=== PATIENT | female | born 1980 | race Caucasian/White ===

== ENCOUNTER 2016-08-08 14:04 | Emergency (ER) | payer SELFPAY ==
[~2016-08-08] VITALS: Ht 154.9 cm; Wt 65.0 kg
[2016-08-08 14:06] VITALS: BP 138/70; PULSE 67; RESP 16; TEMP 98.7; O2SAT 100
[2016-08-08 14:10] VITALS: RESP 16; O2SAT 100
--- NOTE | 2016-08-08 14:10 | PD ---
Physical Exam Time Seen by Provider: 14:08 Narrative 35 y/o female here with numbness R side of face, arm, R sided blurred vision, headache. Symptom onset one hour ago. Slightly decreased etcher machine strength R side. Vital signs reviewed. Seen at triage desk. She is being bedded immediately. Data Data Last Documented VS Vital Signs Date Time Temp Pulse Resp B/P Pulse Ox O2 Delivery O2 Flow Rate FiO2 08/08/16 14:06 98.7 67 16 138/70 100 MDM Medical Record Reviewed: Yes Supervised Visit with CARLY: Jacobo Hampton Aug 08, 2016 14:10
--- NOTE | 2016-08-08 14:34 | PD ---
HPI Chief Complaint: Neuro Symptoms/ Deficits Time Seen by Provider: 14:21 Travel History International Travel<30 days: No Contact w/Intl Traveler<30days: No Traveled to known affect area: No History of Present Illness HPI 35-year-old female presents with frontal headache with blurry vision and numbness to her right face and hand. She states this started at 1 PM this afternoon. She states she's had this happen to her once before but she did not come to the hospital to be evaluated. She states she has history of headaches. She states that the blurry vision has resolved and the numbness has improved to just around her right lip. She states her right arm still feels a little bit tired. She denies any other concurrent complaints. [facility] Past Medical History Medical History: Denies Significant Hx ?: Not LMP: 08/03/16 Tubal Ligation: Yes Past Surgical History Surgical History: No Previous Surgery Social History Alcohol Use: Yes (occ) Tobacco Use: Yes Allergies-Medications (Allergen,Severity, Reaction): Coded Allergies: No Known Allergies (Unverified , 08/08/16) Reported Meds & Prescriptions Reported Meds & Active Scripts Active No Active Prescriptions or Reported Medications Review of Systems Except as stated in HPI: all other systems reviewed are Neg Physical Exam Narrative GENERAL: Well-nourished, well-developed patient. SKIN: Warm and dry. HEAD: Normocephalic and atraumatic. EYES: No injection or drainage. Pupils equal, extraocular movements intact ENT: No nasal drainage noted. NECK: Supple, trachea midline. No meningeal signs CARDIOVASCULAR: Regular rate and rhythm RESPIRATORY: Breath sounds equal bilaterally at apices. No accessory muscle use. GASTROINTESTINAL: Abdomen soft, non-tender, nondistended. EXTREMITIES: No edema. NEUROLOGICAL: Awake and alert.Mild decreased grasp on the right, no pronator drift, no facial droop, sensation grossly intact. Normal speech. Data Data Last Documented VS Vital Signs Date Time Temp Pulse Resp B/P Pulse Ox O2 Delivery O2 Flow Rate FiO2 08/08/16 14:10 16 100 Room Air 08/08/16 14:06 98.7 67 138/70 Orders Magnesium (Mg) (08/08/16 14:21) Phosphorus (Po4) (08/08/16 14:21) Complete Blood Count With Diff (08/08/16 14:21) Comprehensive Metabolic Panel (08/08/16 14:21) Act Partial Throm Time (Ptt) (08/08/16 14:21) Prothrombin Time / Inr (Pt) (08/08/16 14:21) Chest, Single Ap (08/08/16 ) Electrocardiogram (08/08/16 ) Iv Access Insert/Monitor (08/08/16 14:21) Ecg Monitoring (08/08/16 14:21) Oximetry (08/08/16 14:21) Mra Brain W/O Contrast (Cow) (08/08/16 14:40) Mri Brain W&W/O Contrast (08/08/16 14:40) Gadodiamide Pf Inj (Omniscan Pf Inj) (08/08/16 15:51) Labs Laboratory Tests Test 08/08/16 14:33 White Blood Count 7.5 TH/MM3 Red Blood Count 4.36 MIL/MM3 Hemoglobin 12.9 GM/DL Hematocrit 38.3 % Mean Corpuscular Volume 87.7 FL Mean Corpuscular Hemoglobin 29.5 PG Mean Corpuscular Hemoglobin 33.7 % Concent Red Cell Distribution Width 12.3 % Platelet Count 302 TH/MM3 Mean Platelet Volume 8.8 FL Neutrophils (%) (Auto) 57.1 % Lymphocytes (%) (Auto) 34.5 % Monocytes (%) (Auto) 6.6 % Eosinophils (%) (Auto) 1.6 % Basophils (%) (Auto) 0.2 % Neutrophils # (Auto) 4.3 TH/MM3 Lymphocytes # (Auto) 2.6 TH/MM3 Monocytes # (Auto) 0.5 TH/MM3 Eosinophils # (Auto) 0.1 TH/MM3 Basophils # (Auto) 0.0 TH/MM3 CBC Comment DIFF FINAL Differential Comment Prothrombin Time 10.3 SEC Prothromb Time International 0.9 RATIO Ratio Activated Partial 25.4 SEC Thromboplast Time Sodium Level 135 MEQ/L Potassium Level 3.6 MEQ/L Chloride Level 103 MEQ/L Carbon Dioxide Level 27.4 MEQ/L Anion Gap 5 MEQ/L Blood Urea Nitrogen 11 MG/DL Creatinine 0.81 MG/DL Estimat Glomerular Filtration 81 ML/MIN Rate Random Glucose 104 MG/DL Calcium Level 8.9 MG/DL Phosphorus Level 3.2 MG/DL Magnesium Level 2.0 MG/DL Total Bilirubin 0.2 MG/DL Aspartate Amino Transf 11 U/L (AST/SGOT) Alanine Aminotransferase 14 U/L (ALT/SGPT) Alkaline Phosphatase 42 U/L Total Protein 7.0 GM/DL Albumin 3.6 GM/DL MDM Medical Decision Making Medical Screen Exam Complete: Yes Emergency Medical Condition: Yes Medical Record Reviewed: Yes (past history confirm) Interpretation(s) EKG shows NSR, no ST elevation or depression, and no arrhythmias. No significant T-wave inversions. CBC & BMP Diagram 08/08/16 14:33 Last 24 hours Impressions Brain MRI 08/08/16 1440 Signed Impressions: Service Date/Time: Monday, August 08, 2016 15:25 - CONCLUSION: No acute disease. Luke Cohen MD Chest X-Ray 08/08/16 0000 Signed Impressions: Service Date/Time: Monday, August 08, 2016 14:58 - CONCLUSION: No acute disease. Luke Cohen MD Differential Diagnosis Tension, migraine, mass, bleed Narrative Course Will check blood work, imaging and discuss with neurology given acute onset of symptoms ed workup no acute, Patient denies any new complaints and states that they are feeling better. weakness and symptoms have resolved, Patient happy with care, all questions answered. Patient knows that follow up is incumbent on them and to return to the emergency room immediately if new or worsening symptoms develop. Patient given strict return precautions, vitals reviewed and are normal , agrees to further workup as an outpatient. Physician Communication Physician Communication dr amaya states to check mri and mra head stat and no stroke alert dr amaya states to have take a baby aspirin and follow in office Diagnosis Primary Impression: Cephalgia Qualified Code: R51 - Acute nonintractable headache, unspecified headache type Additional Impression: Right hand weakness Referrals: Brandon Amaya MD call for appointment Patient Instructions: General Instructions Additional Instructions: return as needed, tylenol as needed, follow with primary thursday, take a baby aspirin daily until follow up with neurology Med/Other Pt SpecificInfo: No Change to Meds Scripts No Active Prescriptions or Reported Meds Disposition: DISCHARGE HOME Condition: Stable Donna Ramirez MD Aug 08, 2016 14:34
[2016-08-08 14:43] LABS: AUTOMATED NEUTROPHIL # 4.3 TH/MM3 (1.8-7.7); BASOPHIL % 0.2 % (0.0-2.0); EOSINOPHIL # 0.1 TH/MM3 (0-0.4); EOSINOPHIL % 1.6 % (0.0-4.0); HEMATOCRIT 38.3 % (35.0-46.0); HEMO FLAGS DIFF FINAL; LYMPH % 34.5 % (9.0-44.0); LYMPHOCYTE # 2.6 TH/MM3 (1.0-4.8); MEAN CELL VOLUME 87.7 FL (80.0-100.0); MEAN CORPUSCULAR HEMOGLOBIN 29.5 PG (27.0-34.0); MEAN CORPUSCULAR HGB CONC 33.7 % (32.0-36.0); MONO % 6.6 % (0.0-8.0); NEUT % 57.1 % (16.0-70.0); PLATELET COUNT 302 TH/MM3 (150-450); RED BLOOD COUNT 4.36 MIL/MM3 (4.00-5.30); RED CELL DISTRIBUTION WIDTH 12.3 % (11.6-17.2); WHITE BLOOD COUNT 7.5 TH/MM3 (4.0-11.0)
[2016-08-08 14:54] LABS: APTT (PATIENT) 25.4 SEC (24.3-30.1); INTERNATIONAL NORMALIZED RATIO 0.9 RATIO; PROTHROMBIN TIME - PATIENT 10.3 SEC (9.8-11.6)
[2016-08-08 14:59] LABS: ANION GAP 5 MEQ/L (5-15); AST (GOT) 11 U/L (15-37); BICARBONATE 27.4 MEQ/L (21.0-32.0); BLOOD UREA NITROGEN 11 MG/DL (7-18); CHLORIDE 103 MEQ/L (98-107); GLOMERULAR FILTRATION RATE 81 ML/MIN (>89); POTASSIUM 3.6 MEQ/L (3.5-5.1); SODIUM (NA) 135 MEQ/L (136-145)
[2016-08-08 15:00] LABS: ALT (GPT) 14 U/L (10-53)
[2016-08-08 15:02] LABS: ALKALINE PHOSPHATASE 42 U/L (45-117); TOTAL BILIRUBIN ADULT 0.2 MG/DL (0.2-1.0)
--- NOTE | 2016-08-08 15:47 | RADRPT ---
EXAM DATE/TIME: 08/08/2016 14:58 [facility] COMPARISON: No previous studies available for comparison. INDICATIONS : Patient complains of numbness of right side of face and chest. MEDICAL HISTORY : None. SURGICAL HISTORY : None. ENCOUNTER: Initial ACUITY: 1 day PAIN SCORE: 0/10 LOCATION: Bilateral chest FINDINGS: A single view of the chest demonstrates the lungs to be symmetrically aerated without evidence of mas s, infiltrate or effusion. The cardiomediastinal contours are unremarkable. Osseous structures are intact. CONCLUSION: No acute disease. Luke Cohen MD on August 08, 2016 at 15:45 Board Certified Radiologist. This report was verified electronically.
[2016-08-08] MEDS ORDERED: GADODIAMIDE PF 287 MG/ML 5 ML VIAL (for RAD MRI) IV ONE (15:51)
--- NOTE | 2016-08-08 16:21 | RADRPT ---
EXAM DATE/TIME: 08/08/2016 15:25 [facility] COMPARISON: No previous studies available for comparison. INDICATIONS : Cephalgia. CONTRAST: 13 cc Omniscan (gadodiamide) IV MEDICAL HISTORY : None. SURGICAL HISTORY : Tubal ligation. ENCOUNTER: Subsequent ACUITY: 1 day PAIN SCORE: 5/10 LOCATION: cranial TECHNIQUE: Multiplanar, multisequence MRI of the brain was performed both prior to and following the administrat ion of paramagnetic contrast. FINDINGS: CEREBRUM: The ventricles are normal for age. No evidence of midline shift, mass lesion, hemorrhage or acute in farction. No extraaxial fluid collections are seen. The pituitary gland and suprasellar cistern are normal in configuration. WHITE MATTER: No significant signal abnormalities are seen in the white matter. POSTERIOR FOSSA: The cerebellum and brainstem are intact. The 4th ventricle is midline. The cerebellopontine angle is unremarkable. The cerebellar tonsils are normal in position. DIFFUSION IMAGING: No focal areas of restricted diffusion are seen. No evidence of acute infarction. EXTRACRANIAL: The visualized portions of the orbits and paranasal sinuses are unremarkable. POST-CONTRAST: No abnormal areas of parenchymal or dural enhancement. No evidence of blood-brain barrier breakdown. CONCLUSION: No acute disease. Luke Cohen MD on August 08, 2016 at 16:17 Board Certified Radiologist. This report was verified electronically.
--- NOTE | 2016-08-08 16:57 | RADRPT ---
EXAM DATE/TIME: 08/08/2016 15:25 [facility] COMPARISON: No previous studies available for comparison. INDICATIONS : Cephalgia. MEDICAL HISTORY : None. SURGICAL HISTORY : Tubal ligation. ENCOUNTER: Subsequent ACUITY: 1 day PAIN SCORE: 5/10 LOCATION: cranial Please note a normal MRA of the brain does not entirely exclude the possibility of a small aneurysm, nor the possibility of distal intracranial vessel disease. TECHNIQUE: 3D time of flight MRA was performed. Source images, multiplanar STS MIP, and 3D volume MIP reconstru ctions were reviewed. FINDINGS: There is excellent visualization of the major intracranial arteries out to the second-order branch ve ssels. There is no evidence for aneurysm, vessel truncation or stenosis, and no evidence for vascula r malformation. CONCLUSION: Normal examination. Jamel Browning MD on August 08, 2016 at 16:52 Board Certified Radiologist. This report was verified electronically.
[2016-08-08] MEDS ORDERED: ASPIRIN 81 MG CHEW TAB PO ONE (17:30)
--- NOTE | 2016-08-08 17:55 | EKG ---
Date Performed: 08/08/2016 Time Performed: 15:02:24 PTAGE: 35 years EKG: Sinus rhythm INDETERMINATE AXIS ATYPICAL ECG NO PREVIOUS TRACING DOCTOR: Layo Montalvo Interpretating Date/Time 08/08/2016 17:54:21
== END 2016-08-08 17:28 | disposition home or self-care (01) ==
LOC: NEPE 14:04
DX: R51 Headache (principal); M62.81 Muscle weakness (generalized); H53.8 Other visual disturbances; R20.0 Anesthesia of skin; Z72.0 Tobacco use
CPT/HCPCS: 70544; 70553; 71010; 80053; 83735; 84100; 85025; 85610; 85730; 93005; 99285; A9579